=== PATIENT | male | born 1975 | race Hispanic/Latino ===

== ENCOUNTER 2021-12-26 18:11 | Emergency (ER) | payer OTHER ==
[2021-12-26] MEDS ORDERED: Lidocaine 4% Cream 5 GM TUBE w/ Tegaderm ONE (18:21)
[2021-12-26] MEDS ORDERED: Morphine 4 MG/ML VIAL ONE (18:38)
[2021-12-26 18:49] LABS: RBC Distribution Width 14.4 % (11.5-14.5)
[2021-12-26 18:58] LABS: INR-International Normal Ratio 0.9; Prothrombin Time 12.4 sec (12.0-14.7)
[2021-12-26 18:59] LABS: PTT 25.5 sec (22.9-36.1)
[2021-12-26 19:04] LABS: ALT (SGPT) 42 U/L (8-55); AST (SGOT) 50 U/L (5-34); Albumin 4.4 g/dL (3.5-5.0); Alkaline Phosphatase 57 U/L (40-110); Anion Gap 16 mmol/L (10-20); BUN (Urea Nitrogen) 16 mg/dL (8.9-20.6); Bilirubin, Total 0.4 mg/dL (0.2-1.2); Calc. Creatinine Clearance 0 mL/min (70-130); Calcium 9.2 mg/dL (7.8-10.44); Carbon Dioxide 21 mmol/L (22-29); Chloride 108 mmol/L (98-107); Estimated GFR 87; Globulin 3.2 g/dL (2.4-3.5); Glucose 116 mg/dL (70-105); Protein, Total 7.6 g/dL (6.0-8.3); Sodium 141 mmol/L (136-145)
[2021-12-26] MEDS ORDERED: Boostrix 0.5 ML (Tdap) VIAL ONE (19:12)
[2021-12-26] MEDS ORDERED: Ondansetron PF 4 MG/2 ML Vial ONE (19:28)
[2021-12-26] MEDS ORDERED: Lidocaine 1% w/Epinephrine 1:100K 20 ML VIAL ONE (19:28)
[2021-12-26 19:36] LABS: #Basophils 0.2 thou/uL (0.0-0.2); #Eosinphils 0.1 thou/uL (0.0-0.7); #Lymphocytes 1.4 thou/uL (1.20-3.40); #Neutrophils 16.1 thou/uL (1.40-6.50); %Eosinophils 0.7 % (0.0-10.0); %Lymphocytes 7.3 % (21.0-51.0); %Monocytes 5.4 % (0.0-10.0); %Neutrophils 85.6 % (42.0-75.0); Hemoglobin 16.8 g/dL (14.0-18.0); Mean Corpuscular HGB CONC 35.7 g/dL (32.0-36.0); Mean Corpuscular Hemoglobin 32.4 pg (27.0-31.0); Mean Corpuscular Volume 90.7 fL (78.0-98.0); Platelet Count 240 thou/uL (130-400); Red Blood Cell (RBC) Count 5.18 mill/uL (4.70-6.10); White Blood Cell (WBC) Count 18.8 thou/uL (4.8-10.8)
== END 2021-12-26 20:30 | disposition home or self-care (01) ==
LOC: BURERS 18:11
DX: S01.01XA Laceration without foreign body of scalp, initial encounter (principal); S40.212A Abrasion of left shoulder, initial encounter; S80.212A Abrasion, left knee, initial encounter; Z23 Encounter for immunization; V86.99XA Unspecified occupant of other special all-terrain or other off-road motor vehicle injured in nontraffic accident, initial encounter
CPT/HCPCS: 12004; 36415; 70450; 71045; 72125; 72170; 80053; 85025; 85610; 85730; 90471; 90715; 96374; 96375; J2270; J2405

== ENCOUNTER 2022-01-06 12:58 | Emergency (ER) | payer BC | END 2022-01-06 13:22 | disposition home or self-care (01) | LOC: BURERS 12:58 | DX: S01.01XD Laceration without foreign body of scalp, subsequent encounter (principal) ==